=== PATIENT | female | born 1955 | race Caucasian/White ===

== ENCOUNTER 2018-09-22 08:40 | Emergency (ER) | payer MEDICAID ==
[~2018-09-22] VITALS: Ht 157.5 cm; Wt 109.0 kg
[2018-09-22] MEDS ORDERED: LISI-649 MT (08:54)
[2018-09-22] MEDS ORDERED: SITA100T11 MT (08:54)
[2018-09-22] MEDS ORDERED: METF-415 MT (08:54)
[2018-09-22] MEDS ORDERED: IBUPROFEN 600MG TABLET PO ONE (10:45)
[2018-09-22 12:40] LABS: CLARITY URINE CLOUDY (CLEAR); COLOR URINE DARK YELLOW (YELLOW); KETONES URINE TRACE (NEGATIVE); LEUKOCYTE ESTERASE URINE TRACE (NEGATIVE); NITRITE URINE NEGATIVE (NEGATIVE); OCCULT BLOOD URINE NEGATIVE (NEGATIVE); PROTEIN URINE TRACE (NEGATIVE); SPECIFIC GRAVITY URINE 1.026 (1.005-1.030)
[2018-09-22 13:51] VITALS: BP 132/72
== END 2018-09-22 13:52 | disposition home or self-care (01) ==
LOC: ER 08:40
DX: N39.0 Urinary tract infection, site not specified (principal); M71.20 Synovial cyst of popliteal space [Baker], unspecified knee; M19.90 Unspecified osteoarthritis, unspecified site; M79.661 Pain in right lower leg; M79.662 Pain in left lower leg
CPT/HCPCS: 72100; 73560; 82962; 93970; 99284

== ENCOUNTER 2022-05-17 08:46 | Inpatient (IN) | payer MEDICARE, MEDICAID ==
[~2022-05-17] VITALS: Ht 152.4 cm; Wt 116.1 kg
[~2022-05-17 08:46] MED LIST: LISI-649 MT; METF-415 MT; SITA100T11 MT
[2022-05-17] MEDS ORDERED: SODIUM CHLORIDE 0.9% 1,000 ML IV ONE (11:15)
[2022-05-17 12:02] LABS: CLARITY URINE CLEAR (CLEAR); COLOR URINE YELLOW (YELLOW); KETONES URINE NEGATIVE (NEGATIVE); LEUKOCYTE ESTERASE URINE NEGATIVE (NEGATIVE); NITRITE URINE NEGATIVE (NEGATIVE); OCCULT BLOOD URINE NEGATIVE (NEGATIVE); PROTEIN URINE NEGATIVE (NEGATIVE); SPECIFIC GRAVITY URINE 1.012 (1.005-1.030); UROBILINOGEN URINE 0.2 E.U./dL (0.2-1.0)
[2022-05-17 12:42] LABS: BASOPHILS % 0.7 % (0.0-2.0); EOSINOPHILS % 5.6 % (0.0-5.0); HEMATOCRIT. 37.8 % (36.0-48.0); HEMOGLOBIN. 12.3 g/dL (12.0-16.0); LYMPHOCYTES % 14.5 % (20.0-50.0); MEAN CORPUSCULAR HEMOGLOBIN 29.4 pg (28.0-32.0); MEAN CORPUSCULAR VOLUME 90.7 fL (81.0-99.0); MEAN PLATELET VOLUME 8.3 fl (7.4-10.4); MONOCYTES % 11.4 % (2.0-8.0); NEUTROPHILS % 67.8 % (40.0-76.0); PLATELET 327 x1000/uL (130-400); RED BLOOD CELL COUNT 4.16 mill/uL (4.2-5.4); RED CELL DISTRIBUTION WIDTH 14.3 % (11.6-14.6)
[2022-05-17 12:54] LABS: CHLORIDE 101 mEq/L (98-107)
[2022-05-17] MEDS ORDERED: METRONIDAZOLE 500 MG PREMIX 100 ML IV NR (16:15)
[2022-05-17] MEDS ORDERED: CEFTRIAXONE 2 G PREMIX 50 ML IV ONE (16:15)
[2022-05-17] MEDS ORDERED: CEFTRIAXONE 2 G in DEXTROSE 5% WATER 50 ML IV NR (16:30)
[2022-05-17] MEDS ORDERED: IOHEXOL-300 100 ML BOTTLE ONE (17:51)
[2022-05-17] MEDS ORDERED: ACETAMINOPHEN 325MG TABLET PO PRN ×2 (19:30)
[2022-05-17] MEDS: SODIUM CHLORIDE 0.9% 1,000 ML IV SCH (19:30)
[2022-05-17] MEDS ORDERED: DOCUSATE SODIUM 100MG CAPSULE PO PRN (19:30)
[2022-05-17] MEDS ORDERED: LORAZEPAM 0.5MG TABLET PO PRN (19:30)
[2022-05-17] MEDS ORDERED: HYDROCODONE/ACETAMINOPHEN 5/325MG TABLET PO PRN (19:30)
[2022-05-17] MEDS ORDERED: ONDANSETRON HCL 4MG/2ML INJ IV PRN (19:30)
[2022-05-17] MEDS ORDERED: CLONIDINE 0.1MG TABLET PO PRN (19:30)
[2022-05-17] MEDS ORDERED: IPRATROPIUM/ALBUTEROL 0.5-3(2.5)MG/3ML NEB HHN PRN (19:30)
[2022-05-17] MEDS ORDERED: MORPHINE SULFATE 2 MG/ML CPJ (NOT FOR IM USE) IV PRN (19:30)
[2022-05-17] MEDS ORDERED: LEVOFLOXACIN 750MG PREMIX 150 ML IV SCH (20:00)
[2022-05-17 23:17] VITALS: BP 137/82
[2022-05-18] MEDS ORDERED: NALOXONE HCL 0.4MG/ML VIAL IV PRN (00:15)
[2022-05-18] MEDS ORDERED: LISI40TA13 PO (00:31)
[2022-05-18] MEDS ORDERED: PANT40TA51 PO (00:31)
[2022-05-18] MEDS ORDERED: ATOR10TA69 MT (00:31)
[2022-05-18] MEDS ORDERED: METF-416 PO (00:31)
[2022-05-18] MEDS ORDERED: DIPH1TAB24 PO (00:31)
[2022-05-18] MEDS ORDERED: *PATIENT'S OWN MEDICATION STORAGE XX SCH (01:00)
[2022-05-18] MEDS: SODIUM CHLORIDE 0.9% 1,000 ML IV SCH ×2 (05:50→15:15)
[2022-05-18] MEDS: LEVOFLOXACIN 750MG PREMIX 150 ML IV SCH (05:50)
[2022-05-18 08:00] VITALS: BP 126/100
[2022-05-18 08:40] LABS: CHLORIDE 102 mEq/L (98-107)
[2022-05-18 08:50] LABS: BASOPHILS % 0.7 % (0.0-2.0); EOSINOPHILS % 12.6 % (0.0-5.0); HEMATOCRIT. 34.9 % (36.0-48.0); HEMOGLOBIN. 11.4 g/dL (12.0-16.0); LYMPHOCYTES % 16.4 % (20.0-50.0); MEAN CORPUSCULAR HEMOGLOBIN 29.6 pg (28.0-32.0); MEAN CORPUSCULAR VOLUME 90.6 fL (81.0-99.0); MEAN PLATELET VOLUME 8.7 fl (7.4-10.4); MONOCYTES % 13.1 % (2.0-8.0); NEUTROPHILS % 57.2 % (40.0-76.0); PLATELET 274 x1000/uL (130-400); RED BLOOD CELL COUNT 3.85 mill/uL (4.2-5.4); RED CELL DISTRIBUTION WIDTH 13.9 % (11.6-14.6)
[2022-05-18] MEDS: METRONIDAZOLE 500 MG PREMIX 100 ML IV SCH ×4 (10:28→22:32)
[2022-05-18 12:00] VITALS: BP 108/58
[2022-05-18] MEDS: PANTOPRAZOLE 40MG DR TABLET PO SCH (13:43)
[2022-05-18 16:00] VITALS: BP 144/89
[2022-05-18] MEDS ORDERED: SENNOSIDES/DOCUSATE SOD 8.6/50MG TABLET PO PRN (16:15)
[2022-05-18] MEDS: POLYETHYLENE GLYCOL 3350 (17GM) 1 DOSE PACK PO SCH (17:00)
[2022-05-18 17:49] LABS: TOTAL IRON BINDING CAPACITY 284 ug/dL (250-450)
[2022-05-18] MEDS: INSULIN LISPRO 100 UNITS/ML SUBCUT SCH ×2 (17:50→21:00)
[2022-05-18 18:43] LABS: FERRITIN 98 ng/mL (10-291)
[2022-05-18 19:11] LABS: FOLIC ACID (FOLATE) SERUM > 20.00 ng/mL (>5.38)
[2022-05-18 20:00] VITALS: BP 130/73
[2022-05-19] VITALS: BP 117/63
[2022-05-19] MEDS: SODIUM CHLORIDE 0.9% 1,000 ML IV SCH ×3 (01:30→21:44)
[2022-05-19] MEDS: LEVOFLOXACIN 750MG PREMIX 150 ML IV SCH (03:49)
[2022-05-19 04:00] VITALS: BP 114/54
[2022-05-19] MEDS: METRONIDAZOLE 500 MG PREMIX 100 ML IV SCH ×3 (06:29→21:43)
[2022-05-19] MEDS: INSULIN LISPRO 100 UNITS/ML SUBCUT SCH ×4 (06:32→21:00)
[2022-05-19 08:44] LABS: PHOSPHORUS 2.9 mg/dL (2.5-4.9)
[2022-05-19] MEDS ORDERED: MAGNESIUM 2 G PREMIX 50 ML IV SCH (10:30)
[2022-05-19] MEDS: POLYETHYLENE GLYCOL 3350 (17GM) 1 DOSE PACK PO SCH (11:50)
[2022-05-19] MEDS: PANTOPRAZOLE 40MG DR TABLET PO SCH (11:51)
[2022-05-19 12:00] VITALS: BP 142/79
[2022-05-19 16:00] VITALS: BP 142/74
[2022-05-19] MEDS: IRON SUCROSE COMPLEX 100 MG/5 ML ML IV SCH (16:12)
[2022-05-19 20:00] VITALS: BP 160/72
[2022-05-20] VITALS (7 sets, daily range): BP systolic 108–151; BP diastolic 47–77
[2022-05-20] MEDS: LEVOFLOXACIN 750MG PREMIX 150 ML IV SCH (04:09)
[2022-05-20] MEDS: METRONIDAZOLE 500 MG PREMIX 100 ML IV SCH ×2 (06:15→16:16)
[2022-05-20] MEDS: INSULIN LISPRO 100 UNITS/ML SUBCUT SCH ×2 (07:18→12:50)
[2022-05-20 07:30] LABS: BASOPHILS % 0.8 % (0.0-2.0); EOSINOPHILS % 12.6 % (0.0-5.0); HEMATOCRIT. 33.9 % (36.0-48.0); LYMPHOCYTES % 19.7 % (20.0-50.0); MEAN CORPUSCULAR HEMOGLOBIN 29.3 pg (28.0-32.0); MEAN CORPUSCULAR VOLUME 90.4 fL (81.0-99.0); MEAN PLATELET VOLUME 8.4 fl (7.4-10.4); MONOCYTES % 10.5 % (2.0-8.0); NEUTROPHILS % 56.4 % (40.0-76.0); PLATELET 280 x1000/uL (130-400); RED BLOOD CELL COUNT 3.74 mill/uL (4.2-5.4); RED CELL DISTRIBUTION WIDTH 13.7 % (11.6-14.6)
[2022-05-20 07:31] LABS: CHLORIDE 106 mEq/L (98-107)
[2022-05-20] MEDS: PANTOPRAZOLE 40MG DR TABLET PO SCH (09:35)
[2022-05-20] MEDS: SODIUM CHLORIDE 0.9% 1,000 ML IV SCH ×2 (09:35→17:51)
[2022-05-20] MEDS: IRON SUCROSE COMPLEX 100 MG/5 ML ML IV SCH (09:35)
[2022-05-20] MEDS: POLYETHYLENE GLYCOL 3350 (17GM) 1 DOSE PACK PO SCH (09:36)
[2022-05-20] MEDS ORDERED: FERR325T6 MT (10:00)
[2022-05-20] MEDS ORDERED: METR-167 MT (12:16)
[2022-05-20] MEDS ORDERED: LEVO750T46 MT (12:16)
[2022-05-21] MEDS ORDERED: METRONIDAZOLE 500MG TABLET PO SCH (06:00)
[2022-05-21 09:42] LABS: VITAMIN B12 SERUM 593 pg/mL (211-911)
[2022-05-21] MEDS ORDERED: LEVOFLOXACIN 250MG TABLET PO SCH (11:00)
== END 2022-05-20 20:26 | disposition home or self-care (01) | DRG 872 ==
LOC: ER 09:13 → EDBEDREQ 16:26 → 6EST 18:25 → EDBEDREQ 18:27 → EDBEDREQTM 18:27 → ENRESERV 22:18
PROVIDERS: ADMIT Internal Medicine; ATTEND Internal Medicine
DX: A41.9 Sepsis, unspecified organism (principal); K57.20 Diverticulitis of large intestine with perforation and abscess without bleeding; K56.0 Paralytic ileus; Z68.43 Body mass index [BMI] 50.0-59.9, adult; E11.9 Type 2 diabetes mellitus without complications; D72.10 Eosinophilia, unspecified; E66.01 Morbid (severe) obesity due to excess calories; M54.30 Sciatica, unspecified side; E78.5 Hyperlipidemia, unspecified; K76.0 Fatty (change of) liver, not elsewhere classified; I10 Essential (primary) hypertension; K63.5 Polyp of colon; Z79.4 Long term (current) use of insulin; Z79.899 Other long term (current) drug therapy; Z79.84 Long term (current) use of oral hypoglycemic drugs; Z87.19 Personal history of other diseases of the digestive system; Z90.49 Acquired absence of other specified parts of digestive tract
CPT/HCPCS: 36415; 74018; 74177; 76700; 80048; 80053; 81003; 82607; 82728; 82746; 82962; 83036; 83540; 83550; 83735; 84100; 85025; 99291; C1893; J0696; J1815; J1956; J2270; J3475; J3490; J7030; J7060; Q9967

== ENCOUNTER 2022-05-29 11:20 | Emergency (ER) | payer MEDICARE, MEDICAID ==
[~2022-05-29] VITALS: Ht 162.6 cm; Wt 100.0 kg
[~2022-05-29 11:20] MED LIST changes: +ATOR10TA69 MT; +DIPH1TAB24 PO; +FERR325T6 MT; +LEVO750T46 MT; +METR-167 MT; +PANT40TA51 PO; -SITA100T11 MT
[2022-05-29] MEDS ORDERED: ONDANSETRON 4MG ODT PO STA (12:32)
[2022-05-29] MEDS ORDERED: KETOROLAC 60MG/2ML VIAL IM STA (12:32)
[2022-05-29 12:44] VITALS: BP 130/67
[2022-05-29 12:53] LABS: BASOPHILS % 0.5 % (0.0-2.0); EOSINOPHILS % 1.4 % (0.0-5.0); HEMATOCRIT. 37.6 % (36.0-48.0); HEMOGLOBIN. 12.7 g/dL (12.0-16.0); LYMPHOCYTES % 17.6 % (20.0-50.0); MEAN CORPUSCULAR HEMOGLOBIN 30.2 pg (28.0-32.0); MEAN CORPUSCULAR VOLUME 89.3 fL (81.0-99.0); MEAN PLATELET VOLUME 7.6 fl (7.4-10.4); MONOCYTES % 9.2 % (2.0-8.0); NEUTROPHILS % 71.3 % (40.0-76.0); PLATELET 325 x1000/uL (130-400); RED CELL DISTRIBUTION WIDTH 14.3 % (11.6-14.6)
[2022-05-29 12:56] LABS: CHLORIDE 91 mEq/L (98-107)
[2022-05-29 15:33] LABS: CLARITY URINE CLEAR (CLEAR); COLOR URINE YELLOW (YELLOW); KETONES URINE TRACE (NEGATIVE); LEUKOCYTE ESTERASE URINE TRACE (NEGATIVE); NITRITE URINE NEGATIVE (NEGATIVE); OCCULT BLOOD URINE NEGATIVE (NEGATIVE); PROTEIN URINE NEGATIVE (NEGATIVE); SPECIFIC GRAVITY URINE 1.009 (1.005-1.030); UROBILINOGEN URINE 0.2 E.U./dL (0.2-1.0)
[2022-05-29] MEDS ORDERED: ONDA4TAB50 MT (16:24)
== END 2022-05-29 16:31 | disposition home or self-care (01) ==
LOC: ER 11:20
DX: R10.13 Epigastric pain (principal); K57.30 Diverticulosis of large intestine without perforation or abscess without bleeding; K80.20 Calculus of gallbladder without cholecystitis without obstruction; I10 Essential (primary) hypertension; E11.9 Type 2 diabetes mellitus without complications; Z79.899 Other long term (current) drug therapy
CPT/HCPCS: 36415; 74176; 80053; 81003; 83690; 85025; 96372; 99284; J1885; Q0162

== ENCOUNTER 2023-07-25 12:52 | Inpatient (IN) | payer MEDICARE, MEDICAID ==
[~2023-07-25] VITALS: Ht 160 cm; Wt 95.3 kg
[~2023-07-25 12:52] MED LIST changes: -LEVO750T46 MT; +LEVO750T68 MT; +ONDA4TAB50 MT
[2023-07-25 12:55] VITALS: O2SAT 99
[2023-07-25] MEDS ORDERED: SODIUM CHLORIDE 0.9% 1,000 ML IV ONE (13:15)
[2023-07-25] MEDS ORDERED: MORPHINE SULFATE 4 MG/ML CPJ (NOT FOR IM USE) IV ONE (13:15)
[2023-07-25] MEDS ORDERED: ONDANSETRON HCL 4MG/2ML INJ IV ONE (13:15)
[2023-07-25 14:36] LABS: BASOPHILS % 0.8 % (0.0-2.0); EOSINOPHILS % 2.1 % (0.0-5.0); HEMOGLOBIN. 9.3 g/dL (12.0-16.0); LYMPHOCYTES % 12.6 % (20.0-50.0); MEAN CORPUSCULAR HEMOGLOBIN 28.5 pg (28.0-32.0); MEAN PLATELET VOLUME 7.6 fl (7.4-10.4); MONOCYTES % 8.6 % (2.0-8.0); NEUTROPHILS % 75.9 % (40.0-76.0); PLATELET 329 x1000/uL (130-400); RED BLOOD CELL COUNT 3.26 mill/uL (4.2-5.4); RED CELL DISTRIBUTION WIDTH 13.8 % (11.6-14.6); WHITE BLOOD COUNT 12.5 x1000/uL (4.5-11.0)
[2023-07-25 15:47] LABS: ALANINE AMINOTRANSFERASE < 7 IU/L (10-49); ALBUMIN 3.7 g/dL (3.2-4.8); ASPARTATE AMINOTRANSFERASE 12 IU/L (<34); BILIRUBIN TOTAL 0.4 mg/dL (0.1-1.0); CALCIUM 8.9 mg/dL (8.7-10.4); CARBON DIOXIDE 26 mEq/L (21-32); CHLORIDE 99 mEq/L (98-107); CREATININE 1.1 mg/dL (0.6-1.0); GLUCOSE 80 mg/dL (70-105); POTASSIUM 4.8 mEq/L (3.5-5.1); PROTEIN TOTAL 6.8 g/dL (6.0-8.3); SODIUM 134 mEq/L (136-145); UREA NITROGEN BLOOD 13 mg/dL (9-23)
[2023-07-25 15:50] LABS: TROPONIN I HIGH SENSITIVITY < 4 ng/L (3.0-34)
[2023-07-25 20:21] LABS: CLARITY URINE CLEAR (CLEAR); COLOR URINE YELLOW (YELLOW); GLUCOSE URINE NEGATIVE (NEGATIVE); KETONES URINE NEGATIVE (NEGATIVE); LEUKOCYTE ESTERASE URINE NEGATIVE (NEGATIVE); NITRITE URINE NEGATIVE (NEGATIVE); OCCULT BLOOD URINE NEGATIVE (NEGATIVE); PROTEIN URINE NEGATIVE (NEGATIVE); SPECIFIC GRAVITY URINE 1.008 (1.005-1.030); UROBILINOGEN URINE 0.2 E.U./dL (0.2-1.0)
[2023-07-25] MEDS ORDERED: LEVOFLOXACIN 500MG PREMIX 100 ML IV ONE (21:30)
[2023-07-25] MEDS ORDERED: METRONIDAZOLE 500 MG PREMIX 100 ML IV ONE (21:30)
[2023-07-25] MEDS ORDERED: BARIUM SULFATE 450ML ORAL SUSP PO SCH (22:30)
[2023-07-25] MEDS ORDERED: DIATR MEGLU/DIATRIZOATE SOLN 30ML PO SCH (22:30)
[2023-07-26] VITALS: BP 111/67; PULSE 78; RESP 19; TEMP 97.5
[2023-07-26] MEDS ORDERED: DEXTROSE 50% WATER 50ML SYRINGE IV PRN (03:30)
[2023-07-26] MEDS: DEXT 5%/0.45% NACL 1000ML 1,000 ML IV SCH ×2 (05:59→13:30)
[2023-07-26] MEDS: METRONIDAZOLE 500 MG PREMIX 100 ML IV SCH ×2 (06:00→12:00)
[2023-07-26 06:25] VITALS: BP 111/67; PULSE 78; RESP 19; TEMP 97.5
[2023-07-26] MEDS: INSULIN LISPRO 100 UNITS/ML SUBCUT SCH ×3 (07:50→21:00)
[2023-07-26] MEDS: BLOOD SUGAR DIAGNOSTIC STRIP TEST SCH ×3 (07:55→21:00)
[2023-07-26 08:00] VITALS: BP_SYST 116; BP_SYST 134; BP_DIAS 52; BP_DIAS 69; PULSE 65; PULSE 78; RESP 19; RESP 20; TEMP 96.7; TEMP 97.9
[2023-07-26] MEDS ORDERED: LEVOFLOXACIN 500MG PREMIX 100 ML IV SCH (09:00)
[2023-07-26] MEDS: PANTOPRAZOLE SODIUM 40 MG/VIAL IV SCH (09:00)
[2023-07-26 09:03] LABS: BASOPHILS % 0.9 % (0.0-2.0); EOSINOPHILS % 6.7 % (0.0-5.0); HEMOGLOBIN. 10.2 g/dL (12.0-16.0); LYMPHOCYTES % 24.2 % (20.0-50.0); MEAN CORPUSCULAR HEMOGLOBIN 29.6 pg (28.0-32.0); MEAN CORPUSCULAR VOLUME 89.5 fL (81.0-99.0); MEAN PLATELET VOLUME 7.7 fl (7.4-10.4); MONOCYTES % 10.1 % (2.0-8.0); NEUTROPHILS % 58.1 % (40.0-76.0); PLATELET 374 x1000/uL (130-400); RED BLOOD CELL COUNT 3.46 mill/uL (4.2-5.4); WHITE BLOOD COUNT 7.7 x1000/uL (4.5-11.0)
[2023-07-26 09:09] LABS: CALCIUM 9.4 mg/dL (8.7-10.4); CARBON DIOXIDE 27 mEq/L (21-32); CHLORIDE 100 mEq/L (98-107); CREATININE 0.7 mg/dL (0.6-1.0); GLUCOSE 105 mg/dL (70-105); POTASSIUM 3.9 mEq/L (3.5-5.1); SODIUM 136 mEq/L (136-145); UREA NITROGEN BLOOD 9 mg/dL (9-23)
[2023-07-26] MEDS ORDERED: DIATR MEGLU/DIATRIZOATE SOLN 30ML PO NR (11:15)
[2023-07-26 12:00] VITALS: BP 116/69; PULSE 75; RESP 19; TEMP 96.7
[2023-07-26 16:00] VITALS: BP 101/62; PULSE 73; RESP 20; TEMP 95.9
[2023-07-26 20:00] VITALS: BP 124/60; PULSE 74; RESP 20; TEMP 97.7
[2023-07-26] MEDS: MORPHINE SULFATE 2 MG/ML CPJ (NOT FOR IM USE) IV PRN (20:42)
[2023-07-26] MEDS: ATORVASTATIN CALCIUM 10MG TABLET PO SCH (20:45)
[2023-07-26] MEDS: ONDANSETRON HCL 4MG/2ML INJ IV PRN (21:10)
[2023-07-26] MEDS ORDERED: IOHEXOL-300 100 ML BOTTLE ONE (22:56)
[2023-07-27] VITALS (17 sets, daily range): BP systolic 91–140; BP diastolic 53–73; PULSE 66–83; RESP 12–20; TEMP 97.7–98.7
[2023-07-27] MEDS: METRONIDAZOLE 500 MG PREMIX 100 ML IV SCH ×4 (00:46→17:44)
[2023-07-27] MEDS: DEXT 5%/0.45% NACL 1000ML 1,000 ML IV SCH (00:46)
[2023-07-27] MEDS: BLOOD SUGAR DIAGNOSTIC STRIP TEST SCH ×4 (07:20→21:00)
[2023-07-27] MEDS: INSULIN LISPRO 100 UNITS/ML SUBCUT SCH ×4 (07:50→21:00)
[2023-07-27] MEDS: PANTOPRAZOLE SODIUM 40 MG/VIAL IV SCH (09:00)
[2023-07-27] MEDS ORDERED: LIDOCAINE HCL 1% 10 MG/ML 10ML VIAL ONE (10:39)
[2023-07-27] MEDS ORDERED: FENTANYL CITRATE/PF 50MCG/ML 2ML VIAL ONE (10:40)
[2023-07-27] MEDS: LEVOFLOXACIN 750MG PREMIX 150 ML IV SCH (11:20)
[2023-07-27] MEDS ORDERED: NALOXONE HCL 0.4MG/ML VIAL IV PRN (22:00)
[2023-07-27] MEDS: ATORVASTATIN CALCIUM 10MG TABLET PO SCH (22:05)
[2023-07-27] MEDS: MORPHINE SULFATE 2 MG/ML CPJ (NOT FOR IM USE) IV PRN (22:06)
[2023-07-27 22:14] LABS: BASOPHILS % 0.5 % (0.0-2.0); EOSINOPHILS % 2.3 % (0.0-5.0); HEMATOCRIT. 30.7 % (36.0-48.0); HEMOGLOBIN. 10.1 g/dL (12.0-16.0); LYMPHOCYTES % 11.1 % (20.0-50.0); MEAN CORPUSCULAR HGB CONC 32.9 g/dL (31.0-37.0); MEAN CORPUSCULAR VOLUME 91.1 fL (81.0-99.0); MEAN PLATELET VOLUME 7.9 fl (7.4-10.4); MONOCYTES % 8.9 % (2.0-8.0); NEUTROPHILS % 77.2 % (40.0-76.0); PLATELET 347 x1000/uL (130-400); RED BLOOD CELL COUNT 3.37 mill/uL (4.2-5.4); RED CELL DISTRIBUTION WIDTH 13.7 % (11.6-14.6); WHITE BLOOD COUNT 10.6 x1000/uL (4.5-11.0)
[2023-07-28] MEDS: METRONIDAZOLE 500 MG PREMIX 100 ML IV SCH ×4 (00:57→18:04)
[2023-07-28] MEDS: DEXT 5%/0.45% NACL 1000ML 1,000 ML IV SCH (00:59)
[2023-07-28] MEDS: MORPHINE SULFATE 2 MG/ML CPJ (NOT FOR IM USE) IV PRN ×2 (04:14→10:44)
[2023-07-28 07:26] LABS: BASOPHILS % 0.4 % (0.0-2.0); EOSINOPHILS % 2.2 % (0.0-5.0); HEMATOCRIT. 30.1 % (36.0-48.0); HEMOGLOBIN. 10.2 g/dL (12.0-16.0); LYMPHOCYTES % 15.9 % (20.0-50.0); MEAN CORPUSCULAR HEMOGLOBIN 29.9 pg (28.0-32.0); MEAN CORPUSCULAR HGB CONC 33.8 g/dL (31.0-37.0); MEAN CORPUSCULAR VOLUME 88.5 fL (81.0-99.0); MEAN PLATELET VOLUME 7.6 fl (7.4-10.4); MONOCYTES % 10.5 % (2.0-8.0); PLATELET 324 x1000/uL (130-400); RED CELL DISTRIBUTION WIDTH 13.6 % (11.6-14.6); WHITE BLOOD COUNT 10.4 x1000/uL (4.5-11.0)
[2023-07-28] MEDS: BLOOD SUGAR DIAGNOSTIC STRIP TEST SCH ×4 (07:36→21:00)
[2023-07-28] MEDS: INSULIN LISPRO 100 UNITS/ML SUBCUT SCH ×4 (07:50→21:00)
[2023-07-28 08:00] VITALS: BP 124/63; PULSE 90; RESP 18; TEMP 97.7
[2023-07-28] MEDS: PANTOPRAZOLE SODIUM 40 MG/VIAL IV SCH (10:39)
[2023-07-28] MEDS: LEVOFLOXACIN 750MG PREMIX 150 ML IV SCH (10:44)
[2023-07-28 12:00] VITALS: BP 109/44; PULSE 86; RESP 13; TEMP 97.5
[2023-07-28] MEDS: ONDANSETRON HCL 4MG/2ML INJ IV PRN (14:57)
[2023-07-28 16:00] VITALS: BP 98/48; PULSE 82; RESP 13; TEMP 97.7
[2023-07-28 20:00] VITALS: BP 106/54; PULSE 88; RESP 20; TEMP 97.9
[2023-07-28] MEDS: ATORVASTATIN CALCIUM 10MG TABLET PO SCH (22:29)
[2023-07-29] VITALS: BP 106/51; PULSE 90; RESP 20; TEMP 98.6
[2023-07-29] MEDS: METRONIDAZOLE 500 MG PREMIX 100 ML IV SCH ×3 (01:33→11:44)
[2023-07-29] MEDS: DEXT 5%/0.45% NACL 1000ML 1,000 ML IV SCH ×3 (01:34→21:30)
[2023-07-29 04:00] VITALS: BP 130/54; PULSE 83; RESP 20; TEMP 98.1
[2023-07-29] MEDS: BLOOD SUGAR DIAGNOSTIC STRIP TEST SCH ×4 (07:04→20:36)
[2023-07-29] MEDS: INSULIN LISPRO 100 UNITS/ML SUBCUT SCH ×4 (07:50→20:36)
[2023-07-29 08:00] VITALS: BP 110/50; PULSE 80; RESP 18; TEMP 97.7
[2023-07-29] MEDS: PANTOPRAZOLE SODIUM 40 MG/VIAL IV SCH (08:38)
[2023-07-29 08:57] LABS: CALCIUM 8.8 mg/dL (8.7-10.4); CARBON DIOXIDE 27 mEq/L (21-32); CHLORIDE 100 mEq/L (98-107); CREATININE 0.7 mg/dL (0.6-1.0); GLUCOSE 136 mg/dL (70-105); POTASSIUM 3.5 mEq/L (3.5-5.1); SODIUM 137 mEq/L (136-145); UREA NITROGEN BLOOD 6 mg/dL (9-23)
[2023-07-29] MEDS: LEVOFLOXACIN 750MG PREMIX 150 ML IV SCH (10:17)
[2023-07-29 12:00] VITALS: BP 102/54; PULSE 83; RESP 19; TEMP 99
[2023-07-29 16:00] VITALS: BP 100/52; PULSE 85; RESP 18; TEMP 98.4
[2023-07-29] MEDS: MEROPENEM 1000MG in NORMAL SALINE 100ML IV SCH (16:27)
[2023-07-29 17:30] LABS: BASOPHILS % 0.4 % (0.0-2.0); EOSINOPHILS % 3.8 % (0.0-5.0); HEMATOCRIT. 29.8 % (36.0-48.0); HEMOGLOBIN. 9.6 g/dL (12.0-16.0); LYMPHOCYTES % 13.6 % (20.0-50.0); MEAN CORPUSCULAR HEMOGLOBIN 28.9 pg (28.0-32.0); MEAN CORPUSCULAR HGB CONC 32.2 g/dL (31.0-37.0); MEAN CORPUSCULAR VOLUME 89.6 fL (81.0-99.0); MEAN PLATELET VOLUME 7.9 fl (7.4-10.4); MONOCYTES % 11.2 % (2.0-8.0); PLATELET 319 x1000/uL (130-400); RED BLOOD CELL COUNT 3.33 mill/uL (4.2-5.4); RED CELL DISTRIBUTION WIDTH 13.8 % (11.6-14.6); WHITE BLOOD COUNT 11.7 x1000/uL (4.5-11.0)
[2023-07-29 20:00] VITALS: BP 117/50; PULSE 85; RESP 18; TEMP 96.4
[2023-07-29] MEDS: ATORVASTATIN CALCIUM 10MG TABLET PO SCH (20:21)
[2023-07-30] MEDS: MEROPENEM 1000MG in NORMAL SALINE 100ML IV SCH ×3 (00:18→16:50)
[2023-07-30 04:00] VITALS: BP 102/48; PULSE 75; RESP 16; TEMP 97.1
[2023-07-30] MEDS: BLOOD SUGAR DIAGNOSTIC STRIP TEST SCH ×4 (07:29→21:00)
[2023-07-30] MEDS: DEXT 5%/0.45% NACL 1000ML 1,000 ML IV SCH (07:29)
[2023-07-30] MEDS: INSULIN LISPRO 100 UNITS/ML SUBCUT SCH ×3 (07:50→21:00)
[2023-07-30 08:00] VITALS: BP 111/63; PULSE 80; RESP 19; TEMP 97.1
[2023-07-30 08:01] LABS: BASOPHILS % 0.7 % (0.0-2.0); EOSINOPHILS % 8.2 % (0.0-5.0); HEMATOCRIT. 27.9 % (36.0-48.0); HEMOGLOBIN. 9.7 g/dL (12.0-16.0); LYMPHOCYTES % 20.8 % (20.0-50.0); MEAN CORPUSCULAR HEMOGLOBIN 30.9 pg (28.0-32.0); MEAN CORPUSCULAR HGB CONC 34.6 g/dL (31.0-37.0); MEAN CORPUSCULAR VOLUME 89.3 fL (81.0-99.0); MEAN PLATELET VOLUME 7.8 fl (7.4-10.4); MONOCYTES % 11.5 % (2.0-8.0); NEUTROPHILS % 58.8 % (40.0-76.0); PLATELET 316 x1000/uL (130-400); RED BLOOD CELL COUNT 3.12 mill/uL (4.2-5.4); RED CELL DISTRIBUTION WIDTH 13.8 % (11.6-14.6); WHITE BLOOD COUNT 8.5 x1000/uL (4.5-11.0)
[2023-07-30 08:21] LABS: CALCIUM 8.6 mg/dL (8.7-10.4); CARBON DIOXIDE 28 mEq/L (21-32); CHLORIDE 103 mEq/L (98-107); CREATININE 0.6 mg/dL (0.6-1.0); GLUCOSE 116 mg/dL (70-105); POTASSIUM 3.3 mEq/L (3.5-5.1); SODIUM 138 mEq/L (136-145)
[2023-07-30 08:33] LABS: UREA NITROGEN BLOOD < 5 mg/dL (9-23)
[2023-07-30] MEDS: FAMOTIDINE 20MG/2ML VIAL IV SCH ×2 (09:13→21:13)
[2023-07-30 12:00] VITALS: BP 114/68; PULSE 78; RESP 20; TEMP 95.5
[2023-07-30 16:00] VITALS: BP 123/59; PULSE 75; RESP 20; TEMP 95.5
[2023-07-30 20:00] VITALS: BP 132/62; PULSE 85; RESP 19; TEMP 97.8
[2023-07-30] MEDS: ATORVASTATIN CALCIUM 10MG TABLET PO SCH (21:12)
[2023-07-31] VITALS: BP 119/60; PULSE 84; RESP 19; TEMP 97.8
[2023-07-31] MEDS: MEROPENEM 1000MG in NORMAL SALINE 100ML IV SCH ×3 (00:21→17:21)
[2023-07-31] MEDS: DEXT 5%/0.45% NACL 1000ML 1,000 ML IV SCH ×3 (02:38→23:30)
[2023-07-31 04:00] VITALS: BP 147/61; PULSE 82; RESP 20; TEMP 97.5
[2023-07-31 07:10] LABS: HEMATOCRIT. 28.4 % (36.0-48.0); HEMOGLOBIN. 9.5 g/dL (12.0-16.0); LYMPHOCYTES % 25.1 % (20.0-50.0); MEAN CORPUSCULAR HEMOGLOBIN 29.3 pg (28.0-32.0); MEAN CORPUSCULAR HGB CONC 33.5 g/dL (31.0-37.0); MEAN CORPUSCULAR VOLUME 87.7 fL (81.0-99.0); MEAN PLATELET VOLUME 7.9 fl (7.4-10.4); MONOCYTES % 11.3 % (2.0-8.0); NEUTROPHILS % 55.6 % (40.0-76.0); PLATELET 351 x1000/uL (130-400); RED BLOOD CELL COUNT 3.24 mill/uL (4.2-5.4); RED CELL DISTRIBUTION WIDTH 13.8 % (11.6-14.6); WHITE BLOOD COUNT 8.1 x1000/uL (4.5-11.0)
[2023-07-31] MEDS: INSULIN LISPRO 100 UNITS/ML SUBCUT SCH ×4 (07:50→20:25)
[2023-07-31] MEDS: BLOOD SUGAR DIAGNOSTIC STRIP TEST SCH ×4 (07:57→20:25)
[2023-07-31 08:00] VITALS: BP 108/65; PULSE 76; RESP 20; TEMP 97.1
[2023-07-31] MEDS: FAMOTIDINE 20MG/2ML VIAL IV SCH ×2 (09:46→20:35)
[2023-07-31 12:00] VITALS: BP 112/52; PULSE 73; RESP 18; TEMP 97.3
[2023-07-31 15:52] LABS: CALCIUM 8.2 mg/dL (8.7-10.4); CARBON DIOXIDE 24 mEq/L (21-32); CHLORIDE 106 mEq/L (98-107); CREATININE 0.6 mg/dL (0.6-1.0); GLUCOSE 122 mg/dL (70-105); POTASSIUM 3.5 mEq/L (3.5-5.1); SODIUM 141 mEq/L (136-145); UREA NITROGEN BLOOD 5 mg/dL (9-23)
[2023-07-31 16:00] VITALS: BP 117/68; PULSE 70; RESP 20; TEMP 97.3
[2023-07-31] MEDS: ATORVASTATIN CALCIUM 10MG TABLET PO SCH (20:35)
[2023-08-01] VITALS: BP 98/47; PULSE 67; RESP 20; TEMP 97.5
[2023-08-01] MEDS: MEROPENEM 1000MG in NORMAL SALINE 100ML IV SCH ×3 (01:41→17:39)
[2023-08-01] MEDS ORDERED: LIDOCAINE HCL 1% 10 MG/ML 10ML VIAL ONE (07:49)
[2023-08-01] MEDS: INSULIN LISPRO 100 UNITS/ML SUBCUT SCH ×4 (07:50→21:26)
[2023-08-01 08:00] VITALS: BP 119/60; PULSE 71; RESP 20; TEMP 96.9
[2023-08-01] MEDS: BLOOD SUGAR DIAGNOSTIC STRIP TEST SCH ×4 (08:06→21:00)
[2023-08-01] MEDS: FAMOTIDINE 20MG/2ML VIAL IV SCH (09:23)
[2023-08-01] MEDS: DEXT 5%/0.45% NACL 1000ML 1,000 ML IV SCH ×2 (09:24→19:30)
[2023-08-01 12:00] VITALS: BP 105/57; PULSE 68; RESP 20; TEMP 97.6
[2023-08-01 16:00] VITALS: BP 99/48; PULSE 75; RESP 19; TEMP 97.3
[2023-08-01 20:00] VITALS: BP 131/81; PULSE 82; RESP 18; TEMP 96.6
[2023-08-01] MEDS: ATORVASTATIN CALCIUM 10MG TABLET PO SCH (21:04)
[2023-08-02] VITALS: BP 139/79; PULSE 97; RESP 18; TEMP 97.8
[2023-08-02] MEDS: MEROPENEM 1000MG in NORMAL SALINE 100ML IV SCH ×3 (01:03→17:19)
[2023-08-02] MEDS: DEXT 5%/0.45% NACL 1000ML 1,000 ML IV SCH ×2 (05:06→17:18)
[2023-08-02] MEDS: BLOOD SUGAR DIAGNOSTIC STRIP TEST SCH ×4 (07:40→21:00)
[2023-08-02] MEDS: INSULIN LISPRO 100 UNITS/ML SUBCUT SCH ×4 (07:40→22:09)
[2023-08-02 08:00] VITALS: BP 125/77; PULSE 74; RESP 19; TEMP 97.7
[2023-08-02] MEDS: FAMOTIDINE 20MG TABLET PO SCH ×2 (08:40→17:19)
[2023-08-02 12:00] VITALS: BP 108/61; PULSE 74; RESP 20; TEMP 97.7
[2023-08-02 16:00] VITALS: BP 124/71; PULSE 80; RESP 19; TEMP 99.1
[2023-08-02] MEDS ORDERED: MORPHINE SULFATE 2 MG/ML CPJ (NOT FOR IM USE) IV PRN (16:45)
[2023-08-02] MEDS ORDERED: NALOXONE HCL 0.4MG/ML VIAL IV PRN (17:00)
[2023-08-02 20:00] VITALS: BP 120/59; PULSE 76; RESP 18; TEMP 99.3
[2023-08-02] MEDS: ATORVASTATIN CALCIUM 10MG TABLET PO SCH ×2 (21:00→22:02)
[2023-08-03] MEDS: DEXT 5%/0.45% NACL 1000ML 1,000 ML IV SCH (02:31)
[2023-08-03] MEDS: MEROPENEM 1000MG in NORMAL SALINE 100ML IV SCH ×2 (02:31→09:17)
[2023-08-03] MEDS: BLOOD SUGAR DIAGNOSTIC STRIP TEST SCH ×3 (07:20→17:20)
[2023-08-03] MEDS: INSULIN LISPRO 100 UNITS/ML SUBCUT SCH ×3 (07:50→17:50)
[2023-08-03 08:00] VITALS: BP 110/66; PULSE 79; RESP 19; TEMP 97.9
[2023-08-03] MEDS: FAMOTIDINE 20MG TABLET PO SCH ×2 (09:17→17:00)
[2023-08-03 12:00] VITALS: BP 112/60; PULSE 78; RESP 17; TEMP 97.3
[2023-08-03] MEDS ORDERED: ONDANSETRON 4MG ODT PO PRN (15:52)
[2023-08-03 16:00] VITALS: BP 150/58; PULSE 73; RESP 19; TEMP 97.9
[2023-08-03 17:49] LABS: BASOPHILS % 0.9 % (0.0-2.0); EOSINOPHILS % 5.7 % (0.0-5.0); HEMATOCRIT. 30.3 % (36.0-48.0); LYMPHOCYTES % 28.6 % (20.0-50.0); MEAN CORPUSCULAR HEMOGLOBIN 30.2 pg (28.0-32.0); MEAN CORPUSCULAR HGB CONC 32.9 g/dL (31.0-37.0); MEAN CORPUSCULAR VOLUME 91.6 fL (81.0-99.0); MEAN PLATELET VOLUME 7.4 fl (7.4-10.4); MONOCYTES % 13.3 % (2.0-8.0); NEUTROPHILS % 51.5 % (40.0-76.0); PLATELET 362 x1000/uL (130-400); RED BLOOD CELL COUNT 3.31 mill/uL (4.2-5.4); RED CELL DISTRIBUTION WIDTH 13.9 % (11.6-14.6); WHITE BLOOD COUNT 7.4 x1000/uL (4.5-11.0)
[2023-08-03 18:19] LABS: ALANINE AMINOTRANSFERASE < 7 IU/L (10-49); ALBUMIN 3.4 g/dL (3.2-4.8); ASPARTATE AMINOTRANSFERASE 11 IU/L (<34); BILIRUBIN TOTAL 0.3 mg/dL (0.1-1.0); CALCIUM 8.8 mg/dL (8.7-10.4); CARBON DIOXIDE 27 mEq/L (21-32); CHLORIDE 104 mEq/L (98-107); CREATININE 0.5 mg/dL (0.6-1.0); GLUCOSE 92 mg/dL (70-105); PROTEIN TOTAL 6.4 g/dL (6.0-8.3); SODIUM 139 mEq/L (136-145)
[2023-08-03 19:34] LABS: UREA NITROGEN BLOOD < 5 mg/dL (9-23)
== END 2023-08-03 19:55 | disposition home health service (06) | DRG 391 ==
LOC: ER 12:52 → MICUSO 21:54 → 6EST 23:30
PROVIDERS: ADMIT Internal Medicine; ATTEND Internal Medicine
PROC: 0W9G30Z Drainage of Peritoneal Cavity with Drainage Device, Percutaneous Approach (ICD-10-PCS; principal; 2023-07-27)
PROC: 05H533Z Insertion of Infusion Device into Right Subclavian Vein, Percutaneous Approach (ICD-10-PCS; 2023-08-01)
PROC: B546ZZA Ultrasonography of Right Subclavian Vein, Guidance (ICD-10-PCS; 2023-08-01)
DX: K57.20 Diverticulitis of large intestine with perforation and abscess without bleeding (principal); K65.1 Peritoneal abscess; D25.9 Leiomyoma of uterus, unspecified; K80.20 Calculus of gallbladder without cholecystitis without obstruction; E11.9 Type 2 diabetes mellitus without complications; I10 Essential (primary) hypertension; E78.5 Hyperlipidemia, unspecified; Z90.49 Acquired absence of other specified parts of digestive tract; Z79.4 Long term (current) use of insulin
CPT/HCPCS: 36415; 36573; 71045; 74176; 74177; 76700; 77012; 80048; 80053; 81003; 82962; 83036; 84145; 84484; 85025; 87077; 87186; 99152; 99153; 99285; C1725; C1729; C1769; C1893; C9113; J1815; J1956; J2185; J2270; J2405; J3010; J3490; J7030; L8514; Q9963; Q9967; G0500

== ENCOUNTER 2023-08-21 09:07 | Emergency (ER) | payer MEDICARE, MEDICAID ==
[~2023-08-21] VITALS: Ht 154.9 cm; Wt 88.0 kg
[2023-08-21 09:20] VITALS: O2SAT 97
[2023-08-21 13:40] VITALS: BP 136/78; PULSE 75; RESP 20; TEMP 97.8
== END 2023-08-21 13:41 | disposition home or self-care (01) ==
LOC: ER 09:07
DX: Z45.2 Encounter for adjustment and management of vascular access device (principal); I10 Essential (primary) hypertension; E11.9 Type 2 diabetes mellitus without complications; Z79.899 Other long term (current) drug therapy
CPT/HCPCS: 99281